=== PATIENT | female | born 1955 | race Caucasian/White ===

== ENCOUNTER 2017-08-15 14:01 | Outpatient (RCR) | payer BC ==
[~2017-08-15 14:01] MED LIST: CEPHALEXIN500 M1 PO; NAPROSYN 2250 MG/TAB PO; PREDNISONE20 MG PO
== END 2017-11-10 13:51 | disposition home or self-care (01) ==
LOC: MKS.ESL.PT 14:01 → WSPT 08-17 14:15 → MKS.ESL.PT 11-10 13:51
DX: M94.262 Chondromalacia, left knee (principal); M94.261 Chondromalacia, right knee

== ENCOUNTER → 2019-02-08 | Outpatient (CLI) | payer MEDICARE, BC | LOC: MC.RAD 11:28 | DX: Z12.31 Encounter for screening mammogram for malignant neoplasm of breast (principal) ==

== ENCOUNTER 2019-05-15 10:29 | Observation (INO) | payer MEDICARE, BC ==
[~2019-05-15] VITALS: Ht 167.6 cm; Wt 70.6 kg
[2019-05-15 10:52] LABS: BASO % 0.3 % (0.0-2.0); GRAN # 5.3 (1.4-6.5); GRAN % 54.8 % (42.2-75.2); HEMATOCRIT 46.3 % (37.0-47.0); HEMOGLOBIN 15.3 g/dl (12.5-16.0); LYMPH # 3.3 (1.2-3.4); LYMPH % 34.7 % (20.0-51.0); MEAN CELL VOLUME 93 fl (80.0-100.0); MEAN CORPUSCULAR HEMOGLOBIN 31 pg (27.0-31.0); MEAN CORPUSCULAR HGB CONC 33 g/dl (33.0-37.0); PLATELET COUNT 364 K/mm3 (130-400); RED BLOOD COUNT 4.98 M/mm3 (4.10-5.30); REDCELL DISTRIBUTION WIDTH-CV 12.5 % (11.5-14.5)
[2019-05-15 10:58] LABS: PROTHROMBIN TIME 11.2 SECONDS (9.7-12.8)
[2019-05-15 11:01] LABS: PARTIAL THROMBOPLASTIN TIME 32.7 SECONDS (26.0-37.0)
[2019-05-15 11:02] LABS: ALANINE AMINOTRANSFERASE 15 U/L (9-52); ALBUMIN 4.8 gm/dL (3.5-5.0); ALKALINE PHOSPHATASE 92 U/L (50-136); ANION GAP 17 mmol/L (7-16); AST,SGOT 23 U/L (15-37); BILIRUBIN,TOTAL 0.3 mg/dL (0.0-1.0); BLOOD UREA NITROGEN 16 mg/dL (7-17); CALCIUM 10.7 mg/dL (8.4-10.2); CARBON DIOXIDE 19 mmol/L (22-30); CHLORIDE 104 mmol/L (98-107); CREATININE, serum 0.62 (0.52-1.25); GLUCOSE 120 mg/dL (74-106); POTASSIUM 3.6 mmol/L (3.4-5.0); SODIUM 140 mmol/L (137-145); TOTAL PROTEIN 8.3 gm/dL (6.4-8.2)
[2019-05-15 11:16] LABS: TROPONIN-I < 0.012 ng/mL (0.000-0.035)
[2019-05-15 17:19] VITALS: BP 151/77; PULSE 79; TEMP 98.6
--- NOTE | 2019-05-15 17:30 | NUR ---
Pt arrives to medical unit rm [id number] from ED via WC, awake and alert, oriented x 4. Pt denies pain or dyspnea at this time. IVF's infusing per orders through right AC site without s/s of complications. POC reviewed with pt. No further needs reported. Call light in reach.
[2019-05-15 18:35] LABS: ALCOHOL(ethanol),MEDICAL < 10 mg/dL
[2019-05-15 18:47] LABS: TROPONIN-I 6 HR POST INITIAL 0.048 ng/mL (0.000-0.034)
[2019-05-15 19:32] VITALS: BP 131/72; PULSE 65; TEMP 98.2
--- NOTE | 2019-05-15 20:45 | NUR ---
Patient assessed at this time. Alert and oriented x 4, and able to make needs known. Denies having pain and discomfort. Peripheral IV to right AC flushed. Site is without redness, warmth, swelling, and pain. Requested site to be wrapped for protection, and wrapped loosely with coban as requseted. Denies SOB and dyspnea. LS CTA. Respirations even and unlabored. HRR. Telemetry in place. Capillary refill less than 3 seconds. Non-tenting skin turgor. BSAx4. Abdomen soft and non-tender. No edema. Reminded that she has a stress test ordered for morning, and voiced understanding. Denies having any question or concerns. Reminded that she will not be able to eat or drink anything after midnight, and voiced understanding. Voices no questions, needs, or concerns at this time. Resting in bed with call light within reach.
[2019-05-15] MEDS ORDERED: ALEVE PM PO (20:50)
[2019-05-15] MEDS ORDERED: ZOLOFT 50MG50 MG PO (20:50)
[2019-05-15 23:51] VITALS: BP 119/68; PULSE 69; TEMP 98
[2019-05-16 04:04] VITALS: BP 123/69; PULSE 53; TEMP 98
--- NOTE | 2019-05-16 05:59 | NUR ---
Patient has denied having pain and discomfort throughout this shift. Has been NPO since midnight for stress test today. Voices no questions, needs, or concerns at this time. Resting in bed with call light within reach.
[2019-05-16 06:14] VITALS: BP 123/69; PULSE 53
[2019-05-16 06:37] LABS: BASO % 0.2 % (0.0-2.0); EOS % 0.4 % (0-4.0); GRAN # 2.7 (1.4-6.5); GRAN % 49.4 % (42.2-75.2); HEMOGLOBIN 14.3 g/dl (12.5-16.0); LYMPH # 2.2 (1.2-3.4); LYMPH % 39.9 % (20.0-51.0); MEAN CELL VOLUME 94 fl (80.0-100.0); MEAN CORPUSCULAR HEMOGLOBIN 31 pg (27.0-31.0); MEAN CORPUSCULAR HGB CONC 33 g/dl (33.0-37.0); MEAN PLATELET VOLUME 10.4 fl (7.4-10.4); MONO # 0.5 (0.1-0.6); MONO % 9.9 % (1.7-9.3); RED BLOOD COUNT 4.68 M/mm3 (4.10-5.30); REDCELL DISTRIBUTION WIDTH-CV 12.5 % (11.5-14.5)
[2019-05-16 06:39] LABS: PLATELET COUNT 258 K/mm3 (130-400)
[2019-05-16 06:57] LABS: CALCIUM 10.3 mg/dL (8.4-10.2); CHOLESTEROL RISK RATIO 3.4; CREATININE, serum 0.47 (0.52-1.25); POTASSIUM 4.2 mmol/L (3.4-5.0)
[2019-05-16 07:48] VITALS: BP 131/71; PULSE 75; TEMP 98.3
--- NOTE | 2019-05-16 08:04 | NUR ---
Pt awake and alert this morning, talkative, no C/O pain currently, shift assessments complete, left Pt call light in reach, bed in lowest position.
--- NOTE | 2019-05-16 10:45 | NUR ---
ALLEGRA met with the patient and the patient's , Juan Manuel ([phone]), to discuss discharge plan. The patient lives in [place] with her . She reports independence with ADLs and has canes. The patient's PCP is Dr. Uday Lindsay and she receives her medications at [facility]. She reports no difficulties obtaining her meds. The patient does not have advanced directives in EMR, but she states that she does have them completed and that Dr. Lindsay's office should have a copy. She states that her is her DPOA-HC. ALLEGRA contacted Dr. Lindsay's office and requested a copy. The patient plans to return back home with her upon discharge. No additional needs at this time.
[2019-05-16] MEDS ORDERED: ZEBETA 5MG5 MG PO (11:00)
--- NOTE | 2019-05-16 13:14 | NUR ---
Pt discharged to home, escorted to entrance, left with spouse via private auto.
== END 2019-05-16 13:15 | disposition home or self-care (01) ==
LOC: COL.ER 10:29 → MEDICAL 14:55
PROVIDERS: Physician Assistant; ADMIT Hospitalist
DX: I21.A1 Myocardial infarction type 2 (principal); E87.2 Acidosis; I49.3 Ventricular premature depolarization; Z82.3 Family history of stroke; Z82.49 Family history of ischemic heart disease and other diseases of the circulatory system; Z88.8 Allergy status to other drugs, medicaments and biological substances; Z79.82 Long term (current) use of aspirin; Z87.891 Personal history of nicotine dependence
CPT/HCPCS: A9500; G0378; J7030; Q9967

== ENCOUNTER → 2020-12-15 | Outpatient (CLI) | payer MEDICARE, BC ==
[~2020-12-15] MED LIST changes: +ALEVE PM PO; +SYMJEPI0.15 MG/0. IM; +ZEBETA 5MG5 MG PO; +ZOLOFT 50MG50 MG PO
== END ==
LOC: MC.RAD 08:25
DX: Z12.31 Encounter for screening mammogram for malignant neoplasm of breast (principal)

== ENCOUNTER 2021-05-12 10:20 | Emergency (ER) | payer MEDICARE, BC ==
[~2021-05-12] VITALS: Ht 167.6 cm; Wt 71.8 kg
[~2021-05-12 10:20] MED LIST changes: -SYMJEPI0.15 MG/0. IM
[2021-05-12 10:37] VITALS: TEMP 99.1
[2021-05-12] MEDS ORDERED: SYMJEPI0.15 MG/0. IM (12:47)
[2021-05-12 12:56] VITALS: BP 162/86; PULSE 62
== END 2021-05-12 12:56 | disposition home or self-care (01) ==
LOC: COL.ER 10:20
DX: T63.441A Toxic effect of venom of bees, accidental (unintentional), initial encounter (principal)
CPT/HCPCS: J1200; J2930; J7030

== ENCOUNTER → 2022-03-29 | Outpatient (CLI) | payer MEDICARE, BC ==
[~2022-03-29] MED LIST changes: +SYMJEPI0.15 MG/0. IM
== END ==
LOC: MC.RAD 07:48
DX: Z12.31 Encounter for screening mammogram for malignant neoplasm of breast (principal)

== ENCOUNTER → 2024-06-14 | Outpatient (CLI) | payer MEDICARE, BC | LOC: MC.RAD 10:53 | DX: Z12.31 Encounter for screening mammogram for malignant neoplasm of breast (principal) ==